=== PATIENT | male | born 1955 | race Caucasian/White ===

== ENCOUNTER 2017-12-03 23:44 | Emergency (ER) | payer OTHER ==
[2017-12-04] MEDS ORDERED: Ondansetron 4 MG Tab.DIS PO ONE (00:52)
--- NOTE | 2017-12-04 00:58 | EDM.PDOC ---
ED HPI GENERAL MEDICAL PROBLEM - General Chief Complaint: Gastrointestinal Problem Stated Complaint: ABDOMINAL PAIN, VOMITTING Time Seen by Provider: 12/04/17 00:45 Source of Information: Reports: Patient, RN History Limitations: Reports: Other (No old records available) - History of Present Illness Onset Date: 12/03/17 Duration: Hour(s):, Constant Location: Reports: Abdomen, Generalized Quality: Reports: Ache Severity: Mild Improves with: Reports: None Worsens with: Reports: Other (? heat/humidity exposure) Context: Reports: Other (Hx of HTN/AODM) Associated Symptoms: Reports: Nausea/Vomiting. 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) (none) Abdomen Pain Score (Numeric/FACES): 4 - Related Data Allergies Allergy/AdvReac Type Severity Reaction Status Date / Time No Known Allergies Allergy Verified 12/04/17 00:28 Home Meds: Home Meds Aspirin [Adult Aspirin] 81 mg PO DAILY 12/04/17 [History] Ezeatrol 1 tab PO DAILY 12/04/17 [History] Ramipril [Altace] 10 mg PO DAILY 12/04/17 [History] Simvastatin [Zocor] 10 mg PO DAILY 12/04/17 [History] metFORMIN [Glucophage] 500 mg PO TIDMEALS 12/04/17 [History] Past Medical History Cardiovascular History: Reports: High Cholesterol, Hypertension, [place] Endocrine/Metabolic History: Reports: Diabetes, Type II - Infectious Disease History Infectious Disease History: Reports: Chicken Pox, Measles, Mumps - Past Surgical History Cardiovascular Surgical History: Reports: Coronary Artery Stent GI Surgical History: Reports: Colonoscopy Social & Family History - Tobacco Use Smoking Status *Q: Never Smoker Second Hand Smoke Exposure: No - Caffeine Use Caffeine Use: Reports: Coffee, Soda - Alcohol Use Days Per Week of Alcohol Use: 7 Number of Drinks Per Day: 2 Total Drinks Per Week: 14 - Recreational Drug Use Recreational Drug Use: No ED ROS GENERAL - Review of Systems Review Of Systems: See Below Constitutional: Reports: Decreased Appetite. Denies: Fever HEENT: Reports: No Symptoms Respiratory: Reports: No Symptoms Cardiovascular: Reports: No Symptoms GI/Abdominal: Reports: Abdominal Pain (mild, diffuse), Nausea, Vomiting. Denies : Anorexia, Black Stool, Bloody Stool, Constipation, Diarrhea, Distension, Flatus, Hematemesis, Hematochezia, Melena : Reports: No Symptoms Musculoskeletal: Reports: No Symptoms Skin: Reports: No Symptoms Neurological: Reports: No Symptoms Psychiatric: Reports: No Symptoms ED EXAM, GI/ABD - Physical Exam Exam: See Below Exam Limited By: No Limitations General Appearance: Alert, WD/WN, No Apparent Distress Eyes: Bilateral: Normal Appearance Ears: Normal External Exam, Normal Canal, Hearing Grossly Normal Nose: Normal Inspection, Normal Mucosa, No Blood Throat/Mouth: Normal Inspection, Normal Lips, Normal Oropharynx, Normal Voice, No Airway Compromise Head: Atraumatic, Normocephalic Neck: Normal Inspection Respiratory/Chest: No Respiratory Distress, Lungs Clear, Normal Breath Sounds, No Accessory Muscle Use Cardiovascular: Regular Rate, Rhythm, Tachycardia GI/Abdominal Exam: Normal Bowel Sounds, Soft, No Distention, Tender (mild, diffuse), Other (obese) Extremities: Normal Inspection, Normal Range of Motion, Non-Tender Neurological: Alert, Oriented, CN II-XII Intact, Normal Cognition, No Motor/ Sensory Deficits Psychiatric: Normal Affect, Normal Mood Skin Exam: Warm, Dry, Intact, Normal Color Lymphatic: No Adenopathy Course - Vital Signs Last Recorded V/S: Last Vital Signs Temp 36.8 C 12/04/17 00:42 Pulse 113 H 12/04/17 00:42 Resp 21 H 12/04/17 00:42 BP 140/78 12/04/17 01:05 Pulse Ox 99 12/04/17 01:05 Orthostatic Blood Pressure [ 138/86 Standing] Orthostatic Blood Pressure [ 133/91 Sitting] - Orders/Labs/Meds Orders: Active Orders 24 hr Category Date Time Status Cardiac Monitoring [RC] .As Directed Care 12/04/17 00:46 Active Orthostatic Vital Signs [RC] ASDIRECTED Care 12/04/17 00:52 Active Lactated Ringers [Ringers, Lactated] 1,000 ml Med 12/04/17 01:39 Active IV BOLUS Ranitidine [Zantac] Med 12/04/17 01:30 Active 150 mg PO DAILY Medication Orders Lactated Ringer's (Ringers, Lactated) 1,000 mls @ 1,000 mls/hr IV BOLUS ONE Stop: 12/04/17 02:38 Ranitidine HCl (Zantac) 150 mg PO DAILY CAREN Labs: Laboratory Tests 12/04/17 12/04/17 12/04/17 Range/Units 01:02 01:02 01:02 WBC 6.0 (4.5-11.0) K/uL RBC 4.88 (4.30-5.90) M/uL Hgb 14.6 (12.0-15.0) g/dL Hct 43.8 (40.0-54.0) % MCV 90 (80-98) fL MCH 30 (27-31) pg MCHC 33 (32-36) % Plt Count 151 (150-400) K/uL Sodium 139 L (140-148) mmol/L Potassium 3.7 (3.6-5.2) mmol/L Chloride 102 (100-108) mmol/L Carbon Dioxide 26 (21-32) mmol/L Anion Gap 14.7 H (5.0-14.0) mmol/L BUN 27 H (7-18) mg/dL Creatinine 1.0 (0.8-1.3) mg/dL Est Cr Clr Drug Dosing 70.00 mL/min Estimated GFR (MDRD) > 60 (>60) Glucose 126 H (74-106) mg/dL Lactic Acid (0.4-2.0) mmol/L Calcium 8.9 (8.5-10.1) mg/dL Troponin I < 0.017 (0.000-0.056) ng/mL C-Reactive Protein 4.27 H (0.0-0.3) mg/dL 12/04/17 Range/Units 01:39 WBC (4.5-11.0) K/uL RBC (4.30-5.90) M/uL Hgb (12.0-15.0) g/dL Hct (40.0-54.0) % MCV (80-98) fL MCH (27-31) pg MCHC (32-36) % Plt Count (150-400) K/uL Sodium (140-148) mmol/L Potassium (3.6-5.2) mmol/L Chloride (100-108) mmol/L Carbon Dioxide (21-32) mmol/L Anion Gap (5.0-14.0) mmol/L BUN (7-18) mg/dL Creatinine (0.8-1.3) mg/dL Est Cr Clr Drug Dosing mL/min Estimated GFR (MDRD) (>60) Glucose (74-106) mg/dL Lactic Acid 2.0 (0.4-2.0) mmol/L Calcium (8.5-10.1) mg/dL Troponin I (0.000-0.056) ng/mL C-Reactive Protein (0.0-0.3) mg/dL Meds: Medications Generic Name Dose Route Start Last Admin Trade Name Freq PRN Reason Stop Dose Admin Lactated Ringer's 1,000 mls @ 1,000 mls/hr 12/04/17 01:39 Ringers, Lactated IV 12/04/17 02:38 BOLUS ONE Ranitidine HCl 150 mg 12/04/17 01:30 Zantac PO DAILY CAREN Discontinued Medications Generic Name Dose Route Start Last Admin Trade Name Freq PRN Reason Stop Dose Admin Ondansetron HCl 4 mg 12/04/17 00:52 12/04/17 01:25 Zofran Odt PO 12/04/17 00:53 4 mg ONETIME ONE Administration Departure - Departure Time of Disposition: 02:14 Disposition: Home, Self-Care 01 Condition: Fair Clinical Impression: Nausea and vomiting Qualifiers: Vomiting type: unspecified Vomiting Intractability: non-intractable Qualified Code(s): R11.2 - Nausea with vomiting, unspecified - Discharge Information Referrals: PCP,None [Primary Care Provider] - Forms: ED Department Discharge - My Orders Last 24 Hours: My Active Orders 12/04/17 00:46 Cardiac Monitoring [RC] .As Directed 12/04/17 00:52 Orthostatic Vital Signs [RC] ASDIRECTED 12/04/17 01:30 Ranitidine [Zantac] 150 mg PO DAILY 12/04/17 01:39 Lactated Ringers [Ringers, Lactated] 1,000 ml IV BOLUS - Assessment/Plan Last 24 Hours: My Active Orders 12/04/17 00:46 Cardiac Monitoring [RC] .As Directed 12/04/17 00:52 Orthostatic Vital Signs [RC] ASDIRECTED 12/04/17 01:30 Ranitidine [Zantac] 150 mg PO DAILY 12/04/17 01:39 Lactated Ringers [Ringers, Lactated] 1,000 ml IV BOLUS
[2017-12-04] MEDS ORDERED: Lactated Ringers 1,000 ML IV ONE (01:39)
== END 2017-12-04 02:32 | disposition home or self-care (01) ==
LOC: JP.ED 23:44
DX: R11.2 Nausea with vomiting, unspecified (principal); I10 Essential (primary) hypertension; E11.9 Type 2 diabetes mellitus without complications; I25.2 Old myocardial infarction; E78.00 Pure hypercholesterolemia, unspecified; Z79.82 Long term (current) use of aspirin; Z79.84 Long term (current) use of oral hypoglycemic drugs; Z79.899 Other long term (current) drug therapy
CPT/HCPCS: 36415; 80048; 83605; 84484; 85027; 86140; 99284; A9270